=== PATIENT | male | born 2000 | race Caucasian/White ===

== ENCOUNTER 2021-08-28 12:32 | Emergency (ER) | payer OTHER ==
[2021-08-28 12:36] VITALS: RESP 20; TEMP 98
[2021-08-28] MEDS ORDERED: LISINOPRIL-HCTZ 10-12.5 MG 1 EACH TAB PO STA (16:06)
--- NOTE | 2021-08-28 16:17 | ED ---
Recheck HPI - General Chief Complaint: Recheck/Abnormal Lab/Rx Stated Complaint: Elevated blood pressure Time Seen by Provider: 08/28/21 15:55 Source: patient Mode of arrival: ambulatory Limitations: no limitations - History of Present Illness Initial Comments: Patient is a 21-year-old male with a past medical history of hypertension who presents to the emergency department seeking blood pressure medication. Patient states he goes to school in [place] and after moving to [place] last year never established a primary care provider to continue his blood pressure medications. He states he has not been on blood pressure medication since January of 2021. Patient is unsure what medication he was last prescribed for blood pressure but believes it was hydrochlorothiazide. Patient went to get a physical yesterday for a new job in [place] for the summer where his blood pressure was 160/100. Patient was told he needs evaluation and management of his blood pressure in order to start working. Patient states he feels well with no concerns. He denies headache, visual symptoms, chest pain, shortness of breath, and abdominal pain. His pressure today in triage is 190/103. Patient does not check his blood pressure home. - Related Data Home Medications Medication Instructions Recorded Confirmed Acetaminophen Tab [Tylenol Tab] 1,000 mg PO Q6HR PRN 11/20/15 11/20/15 Previous Rx's Medication Instructions Recorded Lisinopril-Hctz 10-12.5 mg 1 tab PO DAILY #30 tab 08/28/21 [Zestoretic 10-12.5] Allergies Allergy/AdvReac Type Severity Reaction Status Date / Time No Known Allergies Allergy Verified 08/28/21 12:36 Review of Systems ROS Statement: Those systems with pertinent positive or pertinent negative responses have been documented in the HPI. ROS Other: All systems not noted in ROS Statement are negative. Past Medical History Past Medical History: Asthma Additional Past Medical History / Comment(s): seasonal allergies History of Any Multi-Drug Resistant Organisms: None Reported Past Surgical History: Adenoidectomy, Hernia Repair, Tonsillectomy Past Anesthesia/Blood Transfusion Reactions: No Reported Reaction Past Psychological History: No Psychological Hx Reported Smoking Status: Never smoker Past Alcohol Use History: None Reported Past Drug Use History: None Reported - Past Family History Father Family Medical History: Diabetes Mellitus, Hypertension Additional Family Medical History / Comment(s): DMII Mother Family Medical History: Hypertension Additional Family Medical History / Comment(s): cardiovascular problems General Exam Limitations: no limitations General appearance: alert, in no apparent distress Head exam: Present: atraumatic, normocephalic, normal inspection Eye exam: Present: normal appearance, PERRL, EOMI. Absent: scleral icterus, conjunctival injection, periorbital swelling Neck exam: Present: full ROM Respiratory exam: Present: normal lung sounds bilaterally. Absent: respiratory distress, wheezes, rales, rhonchi, stridor Cardiovascular Exam: Present: regular rate, normal rhythm, normal heart sounds. Absent: systolic murmur, diastolic murmur, rubs, gallop, clicks GI/Abdominal exam: Present: soft, normal bowel sounds. Absent: distended, tenderness, guarding, rebound, rigid Extremities exam: Absent: pedal edema Neurological exam: Present: alert, oriented X3, CN II-XII intact Psychiatric exam: Present: normal affect, normal mood Skin exam: Present: warm, dry, intact, normal color. Absent: rash Course Vital Signs 08/28/21 08/28/21 12:34 17:15 Temperature 98 F Pulse Rate 110 H 88 Respiratory 20 20 Rate Blood Pressure 190/103 159/97 O2 Sat by Pulse 99 99 Oximetry Medical Decision Making - Medical Decision Making This is a 21-year-old with a past medical history of hypertension who presents for evaluation and management of blood pressure in order to start a new job. Thorough history and examination were performed. Patient normally resides in [place] for school however will be working in [place] for the summer. Patient had elevated blood pressure at his physical yesterday. His blood pressure in triage today is 190/103. Patient feels well and has no concerns. Patient and I discussed the importance of establishing a primary care provider who can monitor and manage his blood pressure long-term. Since patient is only here for the summer I will prescribe him 90 days of lisinopril hydrochlorothiazide. Return parameters discussed. Patient verbalizes understanding and is agreeable to this plan. Dr. Martínez is my attending. Disposition Clinical Impression: Hypertension Disposition: HOME SELF-CARE Condition: Good Instructions (If sedation given, give patient instructions): Hypertension (ED) Additional Instructions: Please take medication as directed. It is important to check your blood pressure daily and establish a primary care provider for monitoring and management of your blood pressure long-term. Blood pressure cuff and monitor can be bought at a local pharmacy. Please return to the emergency department if you experience new, concerning, or worsening symptoms. Prescriptions: Lisinopril-Hctz 10-12.5 mg [Zestoretic 10-12.5] 1 tab PO DAILY #30 tab Is patient prescribed a controlled substance at d/c from ED?: No Referrals: None,Stated [Primary Care Provider] - 1-2 days Time of Disposition: 16:21
[2021-08-28 17:16] VITALS: BP 159/97; PULSE 88
== END 2021-08-28 17:22 | disposition home or self-care (01) ==
LOC: EC 12:32
DX: I10 Essential (primary) hypertension (principal); J45.909 Unspecified asthma, uncomplicated
CPT/HCPCS: 99283